=== PATIENT | male | born 1965 | race Caucasian/White ===

== ENCOUNTER 2016-07-29 16:50 | Emergency (ER) | payer BC ==
[~2016-07-29] VITALS: Ht 182.9 cm; Wt 131.0 kg
[~2016-07-29 16:50] MED LIST: ESOM20CA PO
[2016-07-29 16:59] VITALS: TEMP 37; Ht 182.9 cm; Wt 131.0 kg
[2016-07-29] MEDS ORDERED: KETOROLAC TROMETHAMINE 30 MG/ML VIAL IV STA (17:17)
[2016-07-29 17:47] LABS: BASO % 0.1 %; BASO ABS # 0.01 K/uL (0-0.2); COMPLETE YES; EOS % 1.1 %; HEMATOCRIT 43.8 % (42-52); IG% 1.3 %; LYMPH % 20.1 %; LYMPH ABS # 1.79 K/uL (1.2-3.4); MEAN CELL VOLUME 88.3 fL (80-100); MEAN CORPUSCULAR HGB CONC 35.2 g/dl (32-36); MONO % 9.1 %; NEUT % 68.3 %; PLATELET COUNT 206 K/uL (130-400); RED BLOOD COUNT 4.96 M/uL (4.7-6.1); WHITE BLOOD COUNT 8.89 K/uL (4.8-10.8)
[2016-07-29] MEDS ORDERED: IBUP-1050 PO (17:52)
[2016-07-29] MEDS ORDERED: AMOX875T PO (17:52)
[2016-07-29 18:14] LABS: BUN/CREATININE RATIO 20.2 (10-20); CREATININE 1.1 mg/dl (0.60-1.40); POTASSIUM 3.8 mmol/L (3.5-5.1)
[2016-07-29] MEDS ORDERED: OPTIRAY 320 IV PRN (18:15)
--- NOTE | 2016-07-29 19:45 | DIAGNOSTIC IMAGING REPORT ---
CT soft tissue neck SOFT TISSUE NECK WITH CLINICAL HISTORY: Left mastoid pain radiating to head, anterior/posterior neck pain TECHNIQUE: Transaxial acquisition. Multi axial reformatted images COMPARISON STUDY: 07/10/2014 FINDINGS: Major salivary glands are unremarkable. No evidence for abscess collection or obstruction. Airways intact. The epiglottis is normal. The glottic and subglottic regions are unremarkable. There is no significant cervical adenopathy. There are moderate degenerative changes of the thoracic spine. IMPRESSION: No acute process. Electronically signed by: Al Peralta M.D. 07/29/2016 7:43 PM Dictated Date/Time: 07/29/2016 7:40 PM
--- NOTE | 2016-07-29 19:50 | DIAGNOSTIC IMAGING REPORT ---
CT mastoids MASTOIDS-ORB/SELLA/TEMP W/O CLINICAL HISTORY: Left mastoid pain radiating to head, anterior/posterior neck TECHNIQUE: Transaxial acquisition with multi axial reformatted images COMPARISON STUDY: None FINDINGS: Mastoid air cells are clear. No evidence for destructive process. Middle ear structures are intact. The ossicles are aligned appropriately. Tympanic membranes are intact. The sputum is intact bilaterally. Close are symmetric. Retroseptal structures are intact. There is moderate degenerative change left and to lesser extent right temporomandibular joint. IMPRESSION: 1. Negative study of the mastoid and middle ear regions.. 2. Mastoid air cells are patent with no evidence for significant soft tissue thickening or opacification. 3. Moderate degenerative changes left and to lesser extent right temporomandibular joint Electronically signed by: Al Peralta M.D. 07/29/2016 7:48 PM Dictated Date/Time: 07/29/2016 7:46 PM
[2016-07-29 20:09] VITALS: BP 150/90; PULSE 69; O2SAT 94
[2016-07-29] MEDS ORDERED: OXYCODONE IR HOME PACK PO STA (20:28)
[2016-07-29] MEDS ORDERED: FLEXERIL HOME PACK 10 MG VIAL PO STA (20:28)
[2016-07-29] MEDS ORDERED: CYCL10TA6 PO (20:30)
[2016-07-29] MEDS ORDERED: OXYC1TAB3 PO (20:30)
--- NOTE | 2016-07-29 20:33 | EMERGENCY ROOM VISIT NOTE ---
History First contact with patient: 17:06 Chief Complaint: NECK PAIN Stated Complaint: NECK PAIN/MASTOPID PAIN BEHIND LT EAR, BACK/SPINE History of Present Illness The patient is a 51 year old male who presents to the Emergency Room with complaints of "neck pain/mastoid pain behind left ear, back/spine". The patient presents with pain in the left posterior cervical chain extending to the left mastoid and left ear. He was recently seen and placed upon amoxicillin , which was July 12 for potential sinus infection but he has had worsening pain. The pain is worsening return to his head to the right and is concerned that he may have mastoiditis as the pain he is experiencing currently is the same pain he had when he had mastoiditis. He denies any fevers, chills, chest pain, shortness of breath. He rates the overall pain as a 5/10. The cough is nonproductive. Review of Systems A complete 6-point Review of Systems was discussed with the patient, with pertinent positives and negatives listed in the History of Present Illness. All remaining Review of Systems questions can be considered negative unless otherwise specified. Past Medical/Surgical History Mastoiditis Family History FH: cholecystectomy Social History Smoking Status: Never Smoker Marital Status: Housing Status: lives with family Occupation Status: employed Current/Historical Medications Scheduled Amoxicillin & Pot Clavulanate (Augmentin 875-125 mg), 1 TAB PO BID Scheduled PRN Ibuprofen (Advil), 200-600 MG PO Q4H PRN for Pain Oxycodone Ir (Roxicodone Ir), 1-2 TAB PO Q4H PRN for Pain Allergies Coded Allergies: No Known Allergies (Unverified , UNKNOWN, 07/29/16) Physical Exam Vital Signs Date Time Temp Pulse Resp B/P Pulse Ox O2 Delivery O2 Flow Rate FiO2 07/29/16 20:09 69 18 150/90 94 Room Air 07/29/16 16:59 37.0 87 18 147/84 96 Physical Exam VITAL SIGNS - Vital signs and nursing notes were reviewed. Patient is afebrile , slightly hypertensive at 89 year E for, non-tachycardic and is saturating well on room air. GENERAL -51-year-old male appearing his stated age who is in no acute distress. Communicates well with provider and answers questions appropriately. SKIN - Without rashes. No petechial rashes. No evidence of cellulitis. HEAD - NC/AT. No evidence of fracture. EYES - PERRL with EOMI bilaterally. Sclera anicteric. Palpebral conjunctiva pink and moist with no injection noted. EARS - No deformities of external structures noted on gross examination bilaterally. No pain elicited with palpation of the tragus bilaterally. External auditory canals without discharge or otorrhea. Tympanic membranes pearly jean with retraction on the left. Right is within normal limits.. No fluid or purulent material visualized behind the TM. Handle of malleus, umbo, cone of light, pars tensa/flaccid all easily visualized. NOSE - Midline and without cyanosis. No epistaxis or purulent drainage noted. Septum midline without deviation or septal hematoma noted. MOUTH/OROPHARYNX - Without perioral cyanosis. Buccal mucosa pink and moist and without leukoplakia. Tongue midline with equal elevation of palate bilaterally. No tonsillar hypertrophy, erythema, or exudates noted. Good dentition noted. NECK - Neck with FROM. Supple to palpation. No lymphadenopathy noted. No nuchal rigidity. There is tenderness to palpation overlying the left mastoid and left paraspinous musculature of the cervical spine. There is no C-spine tenderness. LUNGS - Chest wall symmetric without accessory muscle use, intercostals retractions, or central cyanosis. Normal vesicular breath sounds CTA B/L. No wheezes, rales, or rhonchi appreciated. CARDIAC - RRR with S1/S2. No murmur, rubs, or gallops appreciated. Medical Decision & Procedures ER Provider Diagnostic Interpretation: CT mastoids MASTOIDS-ORB/SELLA/TEMP W/O CLINICAL HISTORY: Left mastoid pain radiating to head, anterior/posterior neck TECHNIQUE: Transaxial acquisition with multi axial reformatted images COMPARISON STUDY: None FINDINGS: Mastoid air cells are clear. No evidence for destructive process. Middle ear structures are intact. The ossicles are aligned appropriately. Tympanic membranes are intact. The sputum is intact bilaterally. Close are symmetric. Retroseptal structures are intact. There is moderate degenerative change left and to lesser extent right temporomandibular joint. IMPRESSION: 1. Negative study of the mastoid and middle ear regions.. 2. Mastoid air cells are patent with no evidence for significant soft tissue thickening or opacification. 3. Moderate degenerative changes left and to lesser extent right temporomandibular joint Electronically signed by: Al Peralta M.D. 07/29/2016 7:48 PM Dictated Date/Time: 07/29/2016 7:[address] soft tissue neck SOFT TISSUE NECK WITH CLINICAL HISTORY: Left mastoid pain radiating to head, anterior/posterior neck pain TECHNIQUE: Transaxial acquisition. Multi axial reformatted images COMPARISON STUDY: 07/10/2014 FINDINGS: Major salivary glands are unremarkable. No evidence for abscess collection or obstruction. Airways intact. The epiglottis is normal. The glottic and subglottic regions are unremarkable. There is no significant cervical adenopathy. There are moderate degenerative changes of the thoracic spine. IMPRESSION: No acute process. Electronically signed by: Al Peralta M.D. 07/29/2016 7:43 PM Dictated Date/Time: 07/29/2016 7:40 PM Laboratory Results 07/29/16 17:30 Red Blood Count 4.96, Mean Corpuscular Volume 88.3, Mean Corpuscular Hemoglobin 31.0, Mean Corpuscular Hemoglobin Concent 35.2, Mean Platelet Volume 11.0, Neutrophils (%) (Auto) 68.3, Lymphocytes (%) (Auto) 20.1, Monocytes (%) (Auto) 9.1, Eosinophils (%) (Auto) 1.1, Basophils (%) (Auto) 0.1, Neutrophils # (Auto) 6.06, Lymphocytes # (Auto) 1.79, Monocytes # (Auto) 0.81, Eosinophils # (Auto) 0.10, Basophils # (Auto) 0.01 07/29/16 17:30 Test 07/29/16 17:30 White Blood Count 8.89 K/uL (4.8-10.8) Red Blood Count 4.96 M/uL (4.7-6.1) Hemoglobin 15.4 g/dL (14.0-18.0) Hematocrit 43.8 % (42-52) Mean Corpuscular Volume 88.3 fL (80-100) Mean Corpuscular Hemoglobin 31.0 pg (25-34) Mean Corpuscular Hemoglobin Concent 35.2 g/dl (32-36) Platelet Count 206 K/uL (130-400) Mean Platelet Volume 11.0 fL (7.4-10.4) Neutrophils (%) (Auto) 68.3 % Lymphocytes (%) (Auto) 20.1 % Monocytes (%) (Auto) 9.1 % Eosinophils (%) (Auto) 1.1 % Basophils (%) (Auto) 0.1 % Neutrophils # (Auto) 6.06 K/uL (1.4-6.5) Lymphocytes # (Auto) 1.79 K/uL (1.2-3.4) Monocytes # (Auto) 0.81 K/uL (0.11-0.59) Eosinophils # (Auto) 0.10 K/uL (0-0.5) Basophils # (Auto) 0.01 K/uL (0-0.2) RDW Standard Deviation 39.8 fL (36.4-46.3) RDW Coefficient of Variation 12.5 % (11.5-14.5) Immature Granulocyte % (Auto) 1.3 % Immature Granulocyte # (Auto) 0.12 K/uL (0.00-0.02) Anion Gap 9.0 mmol/L (3-11) Est Creatinine Clear Calc Drug Dose 110.0 ml/min Estimated GFR () 89.0 Estimated GFR (Non- 76.8 BUN/Creatinine Ratio 20.2 (10-20) Calcium Level 9.0 mg/dl (8.5-10.1) Medications Administered Medications (Trade) Dose Ordered Sig/Jacquelyn Route Start Time Stop Time Status Last Admin Dose Admin Ketorolac Tromethamine (Toradol Inj) 30 mg NOW STAT IV 07/29/16 17:17 07/29/16 17:21 DC 07/29/16 17:37 30 MG Cyclobenzaprine HCl (FLEXERIL 10MG Home Pack) 1 homepack UD STAT PO 07/29/16 20:28 07/29/16 20:29 DC 07/29/16 20:46 1 HOMEPACK Oxycodone HCl (Roxicodone Immediate Rel 5MG Home Pack) 1 homepack UD STAT PO 07/29/16 20:28 07/29/16 20:29 DC 07/29/16 20:46 1 HOMEPACK Medical Decision Patient was seen and evaluated as above. After obtaining a thorough history and physical examination there was concern for mastoiditis, and the patient's tenderness upon examination as well as past medical history. IV access is initiated, and the above workup was performed. CBC reveals no leukocytosis or concerning anemia. PRP reveals no evidence of renal failure. CT scan was obtained with results as above. No concerning acute finding. Patient was given Toradol for his pain. Upon reexamination was evident that the patient's pain was stemming from what is likely a strain of the left superior paravertebral, cervical musculature. This is worse with movement. There is no evidence of heart involvement. I do not suspect any cardiac or pulmonary causes. The pain is reproducible with palpation, and worse with movement. He is to follow up regarding today's visit and was given pain medication to help through this time. He was educated upon worrisome symptoms which to return, had questions prior to discharge, and was discharged home in good condition. Knee evaluation and treatment of this patient following differential diagnoses were entertained: Cervical strain, mastoiditis, eustachian tube dysfunction, tonsillitis, meningitis, AK, PE, among others. Impression Primary Impression: Cervical muscle strain Additional Impression: Pain of left mastoid Departure Information Dispostion Home / Self-Care Condition GOOD Prescriptions Oxycodone Ir (Roxicodone Ir) 5 Mg Tab 1-2 TAB PO Q4H Y for Pain, #15 TAB For Initial Treatment Prov: Bo Jauregui PA-C 07/29/16 Referrals Dayron Jade M.D. (PCP) Enoch Varela M.D. Patient Instructions [facility] Additional Instructions You have been treated in the Emergency Department for left mastoid and neck pain. You have been prescribed Oxy IR to be used for pain control. This is a narcotic medication. You cannot drive or consume alcohol while on this medicine. This medicine should only be used for pain that cannot be controlled with over-the- counter pain medicines. You have been prescribed Flexeril (cyclobenzaprine) 1-2 tabs orally, three times per day. Do NOT exceed 30 mg (6 tabs) per day. Take your first dose at bedtime as it can make you drowsy. Always take all medications as prescribed. For pain control, you can use the following [id number] medicines (if >12 yo): - Regular strength (325mg/tab) Tylenol (acetaminophen) 2 tabs every 4-6 hours as needed. Do not exceed 12 tablets in a 24 hour period. Avoid taking more than 4 grams (4000 mg) of Tylenol per day. This includes any other sources of acetaminophen you may take on a regular basis. - Regular strength (200 mg/tab) Advil (ibuprofen) 1-2 tabs every 4-6 hours as needed. Do not exceed a dose of 3200 mg per day. If this is an acute injury, ice can be applied to the area of pain for the first 3 days to help decrease pain and inflammation. After the first 3 days, a heating pad can be used over the area for continued soothing relief. You should schedule a follow-up appointment in 2-3 days with your Primary Care Provider for further evaluation and treatment of your neck and left mastoid pain. If referral to an research professional is desired, you may contact the above specialist. Dr. Varela Return to the Emergency Department if your current symptoms worsen despite treatment course outlined above, or if you develop any of the following symptoms : intractable pain despite aforementioned treatment course, loss of control of your bowel or bladder, numbness or tingling in your groin, or development of a fever. Please return to the emergency department with any new/concerning symptoms. Problem Qualifiers
== END 2016-07-29 20:51 | disposition home or self-care (01) ==
LOC: C.EDB 16:52 → C.EDD 20:51
DX: S16.1XXA Strain of muscle, fascia and tendon at neck level, initial encounter (principal); X58.XXXA Exposure to other specified factors, initial encounter

== ENCOUNTER → 2016-08-24 | Outpatient (CLI) | payer BC ==
[~2016-08-24] MED LIST changes: +AMOX875T PO; -ESOM20CA PO; +IBUP-1050 PO; +OXYC1TAB3 PO
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
== END | disposition home or self-care (01) ==
LOC: C.OPENMRI 08:05
PROVIDERS: ATTEND Orthopaedic Surgery Orthopaedic Surgery of the Spine
DX: M51.36 Other intervertebral disc degeneration, lumbar region (principal)

== ENCOUNTER → 2016-10-19 | Outpatient (CLI) | payer BC, OTHER ==
--- NOTE | 2016-10-19 15:56 | DIAGNOSTIC IMAGING REPORT ---
MRI OF THE CERVICAL SPINE WITHOUT IV CONTRAST CLINICAL HISTORY: Cervicalgia. Upper extremity numbness. COMPARISON STUDY: CT scan of the cervical spine dated 05/16/2009. TECHNIQUE: MRI of the cervical spine is performed using various T1 and T2-weighted sequences in the axial and sagittal planes. IV contrast was not administered for this examination. The examination is degraded by motion artifact. FINDINGS: Cervical spine: Vertebral body height and alignment are maintained throughout the cervical spine. There is straightening of the cervical lordosis. The atlantodental articulation appears maintained. The spinous processes are intact as visualized. No destructive bony lesion is seen. Small anterior osteophytes are noted in the lower cervical region. Intervertebral discs: Mild degenerative disc desiccation is noted throughout the cervical spine. No significant loss of height is seen. Spinal cord: The cervical spinal cord is normal in morphology and signal intensity. C2-C3: Unremarkable. C3-C4: A posterior disc osteophyte complex minimally effaces the ventral subarachnoid space. Predominantly facet arthropathy causes minimal bilateral neural foraminal stenosis. C4-C5: A posterior disc osteophyte complex eccentric to the left effaces the ventral subarachnoid space. Uncovertebral and facet arthropathy cause minimal left neural foraminal stenosis. C5-C6: A posterior disc osteophyte complex abuts the ventral cord. Uncovertebral and facet arthropathy cause mild left greater than right neural foraminal stenosis. C6-C7: A posterior disc osteophyte complex abuts the ventral cord. The neural foramina appear clear. C7-T1: Unremarkable. Soft tissues: The prevertebral and paraspinous soft tissues are within normal limits. Brain parenchyma: Partially imaged brain parenchyma at the skull base is normal in appearance. IMPRESSION: 1. Mild multilevel cervical spondylosis as detailed above. This is greatest from C4-C5 through C6-C7. See discussion for detailed level by level analysis. 2. No destructive bony lesion is identified. 3. The cervical spinal cord is normal in morphology and signal intensity. Dictated: 10/19/2016 3:38 PM Transcribed: 10/19/2016 3:56 PM [facility] Electronically signed by: Hardeep Garcia M.D. 10/19/2016 3:59 PM Dictated Date/Time: 10/19/2016 3:38 PM
== END | disposition home or self-care (01) ==
LOC: C.OPENMRI 14:43
PROVIDERS: ATTEND Orthopaedic Surgery Orthopaedic Surgery of the Spine
DX: M47.892 Other spondylosis, cervical region (principal)

== ENCOUNTER 2022-02-03 03:05 | Inpatient (IN) ==
[2022-02-03] MEDS ORDERED: ONDANSETRON INJ 2 MG/ML 2 ML VIAL IV STA (03:21)
[2022-02-03] MEDS ORDERED: fentaNYL citrate 100 MCG/2 ML VIAL IV STA (03:21)
--- NOTE | 2022-02-03 03:27 | Emergency Department Note ---
Impression & Plan Stroke-like symptom, Chest pain ED Provider Note Name: EVERETTE BAUTISTA III Age: 56 Sex: M Arrives Via: Ambulance Informant: Patient, ED Provider: Balaji Esquivel MD Chief Complaint: Chest pain Impression: As per impressions above Medical Decision Making: Very pleasant 56-year-old gentleman with history of GERD and previous cholecystectomy arrives for evaluation of left chest pain. Intermittent over the last day or so. When discussing at length with the patient there clearly is an element of left-sided paresthesias to both the left face the left arm and the left legs and then he admits that a few days ago he felt like he could not walk in a straight line. EKG is without acute ischemia and initial troponin is negative. A CT of the head was obtained given the strokelike symptoms he is describing. The CT head is negative. Patient has an NIH of 0 and given on and off symptoms for the last day I do not feel that he would be a TNKase patient in the setting of normal NIH. Patient is agreeable to hospitalization for both a cardiac rule out and further evaluation of this strokelike symptoms. He has no evidence of dissection nor is he in particular short of breath. 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 Patient received aspirin 324 mg by EMS. Patient had received some nitro by EMS and got a severe headache thus was given some fentanyl on arrival with no further headache and no further chest pain issues. Triage/Nursing Notes reviewed by Me Differentials:Cardiac ischemia, aortic dissection, pulmonary embolism, pneumothorax, pneumonia, pericarditis, myocarditis, esophageal rupture, GERD, cholecystitis, pancreatitis, musculoskeletal, as well as other pathologies. Vital Signs: reviewed and remarkable for no significant abnormalities Interventions: Fentanyl 75mcg IV Labs:Reviewed and remarkable for no significant abnormalities Imaging: X ray results are stated below per my interpretation: Chest: 1 view: No infiltrate, no effusion, normal cardiac border. [facility] Radiologist interpretation reviewed by me: CT head no acute findings EKG:As per my interpretation. Indication chest pain. Normal sinus rhythm at 77 bpm noted QTC of 443. There is an incomplete right bundle branch block. There is no ectopy nor ischemia. When compared to EKG of September 07, 2014 there is no acute change. Consults:Hospitalist Plan: Disposition:Hospitalization. Condition: Good History of Present Illness:56-year-old male arrives for evaluation of chest pain. Patient notes earlier today starting to get some substernal chest pain. Radiated to his left jaw and left arm. It exacerbated as the evening went on but also waxing and waning at times. He also notes that he started to get some paresthesias in the left arm. Couple days ago he notes that he may have had some symptoms and felt like he could not walk straight. This resolved. He denies any slurred speech, facial droop, weakness in arms or legs focally. He has no history of anything like this before. He is not a smoker. 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 He has no leg swelling or calf pain. He denies any tearing chest pain or tearing back pain. He has had no recent abdominal pain. He did have some cramping in his left thigh a few days ago which has resolved. He has had no rec ent falls, trauma, injuries. This evening pain was getting significantly worse to call 911. He was given aspirin 324 mg p.o. as well as nitroglycerin spray. He notes the chest pain is have but he is still having some of it. He did get a severe headache with the nitroglycerin and request no further that. Denies any history of CAD no recent cardiac work-up. No family history of CAD. No family history of dissection or DVT/PE. ROS: See above HPI for pertinent positives & negatives. A total of 10 systems reviewed and were otherwise negative. 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 EYES: No scleral icterus, unremarkable pupils. ENT: Mucous membranes moist, no nasal congestion. NECK: No masses appreciated, nomeningismus, trachea is midline. RESPIRATORY: No dyspnea. Clear to auscultation and equal bilaterally. No wheeze, no rhonchi. CARDIOVASCULAR: Regular rate and rhythm.No murmurs, rubs, gallops appreciated. GASTROINTESTINAL: Abdomen soft, non-tender, no peritonitis.Bowel sounds positive.No masses appreciated. BACK: No midline tenderness, no CVA tenderness EXTREMITIES: Normal motion all extremities, no cyanosis, no edema. NEUROLOGIC: Alert and oriented, no acute motor or sensory deficits, no focal weakness, cranial nerves grossly intact. SKIN: No rash, no jaundice, no diaphoresis. PSYCH: Appropriate GCS: 15 ED Course: Times/Reassessments: Multiple reassessments patient stable with good vitals and feeling much better. Agreeable to hospitalization. Balaji Esquivel MD Past Med/Surg History Social History Tobacco Type: Smokeless Tobacco (Dip or Chew) Do You Dip or Chew Tobacco: Yes; Tobacco Cessation Education Requested by Patient: No Hx Substance Use: No Preferred Language: Pashto Communication Ability: Effective Distribution Center Manager Required: No Current Living Situation: Spouse Other Information That Helps Us Care for You: No Feels Safe at Home: Yes Assistive Devices: None Allergies Allergies Allergy/AdvReac Type Severity Reaction Status Date / Time No Known Allergies AdvReac Unknown UNKNOWN Unverified 07/29/16 17:51 Home Meds Home Medications Medication Instructions Recorded Confirmed Amoxicillin & Pot Clavulanate 1 tab PO BID #14 tabs 07/29/16 (Augmentin 875-125 mg) Ibuprofen (Advil) 200 - 600 mg PO Q4H PRN Pain #0 07/29/16 tabs Results & Data (ED) Vital Signs Vital Signs - 24 hr 02/03/22 03:10 02/03/22 03:21 02/03/22 03:21 Temperature 36.8 C Temperature Source Oral Pulse Rate 89 Pulse Rate [Finger] 89 Respiratory Rate 20 20 Respiratory Effort / Characteristics Non-Labored Spontaneous Non-Labored Spontaneous Respiratory Depth Normal Normal Blood Pressure 111/76 Blood Pressure [Right Arm] 111/76 Blood Pressure Mean 87 Blood Pressure Mean [Right Arm] 87 Blood Pressure Position Sitting Blood Pressure Position [Right Arm] Sitting Pulse Oximetry 96 96 96 Oxygen Delivery Method Room Air Room Air Room Air Sepsis Recent Fever Within 48 Hours No Sepsis New/Unexplained Change in Mental Status No Sepsis Action Taken by Nursing No Action Required Laboratory Data Result diagrams: 02/04/22 06:45 02/04/22 06:45 Lab Results 02/03/22 02/03/22 02/03/22 Range/Units 03:15 03:15 03:15 WBC 8.75 (4.8-10.8) K/ul RBC 4.92 (4.63-6.08) M/uL Hgb 15.4 (14.0-18.0) g/dl Hct 44.9 (40.1-51.0) % MCV 91.3 (80.0-100.0) fL MCH 31.3 (25.0-34.0) pg MCHC 34.3 (32.0-36.0) g/dL RDW Std Deviation 40.4 (36.4-46.3) fL RDW Coeff of Faye 12.0 (11.5-14.5) % Plt Count 207 (130-400) K/uL MPV 11.5 (9.4-12.4) fL Immature Gran % (Auto) 2.1 % Neut % (Auto) 68.9 % Lymph % (Auto) 19.3 % [place]ham % (Auto) 8.1 % Eos % (Auto) 0.9 % Baso % (Auto) 0.7 % Neut # (Auto) 6.03 (1.4-6.5) K/uL Lymph # (Auto) 1.69 (1.2-3.4) K/uL [place]ham # (Auto) 0.71 (0.24-0.82) K/uL Eos # (Auto) 0.08 (0-0.50) K/uL Baso # (Auto) 0.06 (0-0.2) K/uL Immature Gran # (Auto) 0.18 H (0.00-0.02) K/uL PT 10.7 (9.0-12.0) Seconds INR 1.0 (0.9-1.1) APTT 29.6 (21.0-31.0) Seconds PTT Ratio 1.1 D-Dimer 190 (0-500) ug/L FEU Sodium 136 (136-145) mmol/L Potassium 4.0 (3.5-5.1) mmol/L Chloride 103 (98-107) mmol/L Carbon Dioxide 24 (21-32) mmol/L Anion Gap 9 (3-11) BUN 18 (6-23) mg/dl Creatinine 0.99 (0.6-1.4) mg/dl Est Cr Clr Drug Dosing 117.9 ml/min Est GFR ( Amer) 97.6 ml/min Est GFR (Non-Af Amer) 84.2 ml/min BUN/Creatinine Ratio 18.2 (10-20) Glucose 128 H (70-99(Fasting)) mg/dl Calcium 8.7 (8.5-10.1) mg/dl Magnesium 2.1 (1.7-2.4) mg/dl Total Bilirubin 0.7 (0.2-1.0) mg/dl Direct Bilirubin 0.1 (0-0.2) mg/dl AST 20 (13-39) U/L ALT 26 (7-52) U/L Alkaline Phosphatase 82 (34-104) U/L Troponin I High Sens 3.5 (0-20) pg/ml Total Protein 6.6 (6.0-8.3) gm/dl Albumin 4.2 (3.4-5.0) gm/dl Lipase 48 (11-82) U/L SARS-CoV-2, RNA, NAAT (NEGATIVE) 02/03/22 Range/Units 04:03 WBC (4.8-10.8) K/ul RBC (4.63-6.08) M/uL Hgb (14.0-18.0) g/dl Hct (40.1-51.0) % MCV (80.0-100.0) fL MCH (25.0-34.0) pg MCHC (32.0-36.0) g/dL RDW Std Deviation (36.4-46.3) fL RDW Coeff of Faye (11.5-14.5) % Plt Count (130-400) K/uL MPV (9.4-12.4) fL Immature Gran % (Auto) % Neut % (Auto) % Lymph % (Auto) % Windham % (Auto) % Eos % (Auto) % Baso % (Auto) % Neut # (Auto) (1.4-6.5) K/uL Lymph # (Auto) (1.2-3.4) K/uL Windham # (Auto) (0.24-0.82) K/uL Eos # (Auto) (0-0.50) K/uL Baso # (Auto) (0-0.2) K/uL Immature Gran # (Auto) (0.00-0.02) K/uL PT (9.0-12.0) Seconds INR (0.9-1.1) APTT (21.0-31.0) Seconds PTT Ratio D-Dimer (0-500) ug/L FEU Sodium (136-145) mmol/L Potassium (3.5-5.1) mmol/L Chloride (98-107) mmol/L Carbon Dioxide (21-32) mmol/L Anion Gap (3-11) BUN (6-23) mg/dl Creatinine (0.6-1.4) mg/dl Est Cr Clr Drug Dosing ml/min Est GFR ( Amer) ml/min Est GFR (Non-Af Amer) ml/min BUN/Creatinine Ratio (10-20) Glucose (70-99(Fasting)) mg/dl Calcium (8.5-10.1) mg/dl Magnesium (1.7-2.4) mg/dl Total Bilirubin (0.2-1.0) mg/dl Direct Bilirubin (0-0.2) mg/dl AST (13-39) U/L ALT (7-52) U/L Alkaline Phosphatase (34-104) U/L Troponin I High Sens (0-20) pg/ml Total Protein (6.0-8.3) gm/dl Albumin (3.4-5.0) gm/dl Lipase (11-82) U/L SARS-CoV-2, RNA, NAAT NEGATIVE (NEGATIVE) Administered Medications Acetaminophen (Acetaminophen 325 Mg Tab) 650 mg PO Q4H PRN PRN Reason: Pain or Fever Stop: 03/05/22 09:14 Last Admin: 02/04/22 10:08 Dose: 650 mg Documented By: Admin: 02/03/22 12:55 Dose: 650 mg Documented By: Aspirin (Aspirin 81 Mg Ectab) 81 mg PO [facility] Stop: 03/05/22 09:14 Last Admin: 02/04/22 10:06 Dose: 81 mg Documented By: Admin: 02/03/22 10:58 Dose: 81 mg Documented By: Lorazepam (Lorazepam 0.5 Mg Tab) 0.5 mg PO TODAY@1000 [facility] Stop: 02/04/22 22:00 Last Admin: 02/04/22 11:05 Dose: 0.5 mg Documented By: MS Pantoprazole Sodium (Pantoprazole 40 Mg Tab) 40 mg PO QAM [facility] Stop: 03/05/22 15:14 Last Admin: 02/04/22 10:06 Dose: 40 mg Documented By: Admin: 02/03/22 17:17 Dose: 40 mg Documented By: MS Discontinued Medications Alprazolam (Alprazolam 0.25 Mg Tablet) 0.25 mg PO ONCE ONE Stop: 02/03/22 11:38 Last Admin: 02/03/22 17:20 Dose: Not Given Documented By: MS Alprazolam (Alprazolam 0.25 Mg Tablet) 0.25 mg PO NOW STA Stop: 02/03/22 17:15 Last Admin: 02/03/22 17:18 Dose: 0.25 mg Documented By: Fentanyl Citrate (Fentanyl Citrate 100 Mcg/2 Ml Vial) 75 mcg IV NOW STA Stop: 02/03/22 03:22 Last Admin: 02/03/22 03:56 Dose: 75 mcg Documented By: EMIR Gadobutrol (Gadobutrol 65ml Vial) 13 ml IV ONCE ONE Stop: 02/03/22 18:53 Last Admin: 02/03/22 18:53 Dose: 13 ml Documented By: AFSHIN Sodium Chloride (Nss 1000ml) 1,000 mls @ 80 mls/hr IV .[id number] [facility] Stop: 02/03/22 21:44 Last Infusion: 02/03/22 15:29 Dose: 0 mls/hr Documented By: Admin: 02/03/22 10:58 Dose: 80 mls/hr Documented By: Ioversol (Optiray 300 500ml) 106 ml IV ONCE ONE Stop: 02/03/22 06:36 Last Admin: 02/03/22 06:35 Dose: 106 ml Documented By: MARY Ondansetron HCl (Ondansetron Inj 2 Mg/Ml 2 Ml Vial) 4 mg IV NOW STA Stop: 02/03/22 03:22 Last Admin: 02/03/22 03:53 Dose: 4 mg Documented By: CC Discharge Plan Visit Data Chief Complaint: Chest Pain ED Provider: Balaji Esquivel Discharge Problem: Stroke-like symptom, Chest pain Patient Disposition: Admitted As Inpatient Discharge Instructions Interventions: ED Discharge Assessment Last Done: 02/03/22 10:00 : Chest pain Qualifiers: Chest pain type: precordial pain Qualified Code(s): R07.2 - Precordial pain
[2022-02-03 03:45] LABS: Basophils # (auto) 0.06 K/uL (0-0.2); Basophils % (auto) 0.7 %; Eosinophils # (auto) 0.08 K/uL (0-0.50); Eosinophils % (auto) 0.9 %; Hematocrit (blood only) 44.9 % (40.1-51.0); Hemoglobin 15.4 g/dl (14.0-18.0); Immature Granulocytes # (auto) 0.18 K/uL (0.00-0.02); Immature Granulocytes % (auto) 2.1 %; Lymphocytes # (auto) 1.69 K/uL (1.2-3.4); Lymphocytes % (auto) 19.3 %; Mean Corpuscular Hemoglobin 31.3 pg (25.0-34.0); Mean Corpuscular Hgb Conc 34.3 g/dL (32.0-36.0); Mean Corpuscular Volume 91.3 fL (80.0-100.0); Mean Platelet Volume 11.5 fL (9.4-12.4); Monocytes # (auto) 0.71 K/uL (0.24-0.82); Monocytes % (auto) 8.1 %; Neutrophils # (auto) 6.03 K/uL (1.4-6.5); Neutrophils % (auto) 68.9 %; Platelet Count 207 K/uL (130-400); RDW Standard Deviation 40.4 fL (36.4-46.3); Red Blood Count 4.92 M/uL (4.63-6.08); White Blood Count 8.75 K/ul (4.8-10.8)
[2022-02-03 04:01] LABS: D Dimer 190 ug/L FEU (0-500); Partial Thromboplastin Ratio 1.1; Partial Thromboplastin Time 29.6 Seconds (21.0-31.0); Prothrombin Time 10.7 Seconds (9.0-12.0)
[2022-02-03 04:53] LABS: Albumin Level 4.2 gm/dl (3.4-5.0); BUN Creatinine Ratio 18.2 (10-20); Bilirubin Direct 0.1 mg/dl (0-0.2); Bilirubin,Total 0.7 mg/dl (0.2-1.0); Calcium 8.7 mg/dl (8.5-10.1); Creatinine Clr Calc Pharmacy 117.9 ml/min; Est GFR (African American) 97.6 ml/min; Est GFR (Non-African American) 84.2 ml/min; Magnesium 2.1 mg/dl (1.7-2.4); Total Protein 6.6 gm/dl (6.0-8.3); Troponin I High Sensitivity 3.5 pg/ml (0-20)
[2022-02-03] MEDS ORDERED: OPTIRAY 300 500mL IV ONE (06:35)
[2022-02-03 06:48] LABS: Appearance Urine Clear (Clear); Bilirubin Urine Negative (Negative); Blood Urine Negative (Negative); Color Urine Yellow; Glucose Urine UA Negative (Negative); Ketones Urine Negative (Negative); Leukocyte Esterase Urine Negative (Negative); Nitrite Urine Negative (Negative); Protein Urine Negative (Negative); Urobilinogen Urine Negative (Negative); pH Urine 5.5 (4.5-7.5)
--- NOTE | 2022-02-03 07:18 | History and Physical Report ---
DATE OF ADMISSION: 02/03/2022. CHIEF COMPLAINT: Chest pain and numbness in the left upper extremity. HISTORY OF PRESENT ILLNESS: A 56-year-old male with no significant past medical history, does not go to the doctor often, not on any medications, presents with chest pain. The patient says last night at 11 p.m., before going to work, he had some chest discomfort and also numbness and pain in his left underarm and feels numbness in the last two fingers and also headache and neck pain and also some discomfort in his left thigh region and also some numbness in the left foot. After coming from work, it was not getting better, so he was brought to the hospital. He was given aspirin and nitroglycerin sublingually, currently resting comfortably, talking fine. No facial droop seen, no slurred speech. The patient states couple of days ago, he had problem where he felt like he was not walking straight and today also, before going to work, he felt like falling forward. 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 No smoking, but chews tobacco daily. Alcohol occasionally. No drug use. Currently, headache is okay. No blurred visions, no earache, no runny nose, no sore throat, no cough, no difficulty swallowing. Appetite is okay. During the episode, he felt slightly short of breath and slightly nauseous. He also has chronic abdominal pain. No diarrhea or constipation. Normal bladder movements. Currently, resting comfortably and hemodynamically stable. ALLERGIES: No known drug allergies. PAST MEDICAL HISTORY: As mentioned above. PAST SURGICAL HISTORY: Had a laparoscopic cholecystectomy, umbilical hernia repair. MEDICATIONS: None. FAMILY HISTORY: No family history on file. SOCIAL HISTORY: Chews tobacco. Alcohol, rarely. No drug use. REVIEW OF SYSTEMS: As per HPI. Rest of the review of systems is negative. PHYSICAL EXAMINATION: GENERAL: The patient is morbidly obese, not in acute distress. VITAL SIGNS: Temperature 36.8, pulse 68, respiratory rate 16, blood pressure 150/72, oxygen 94% on room air. HEENT: Pupils equal, round and reactive to light. Oral mucosa moist. NECK: No JVD or neck masses. CARDIOVASCULAR: S1 and S2 heard. Regular rate and rhythm. No murmur, no gallop. RESPIRATORY SYSTEM: Normal AP diameter. No accessory muscle use. No wheezing, no crackles. ABDOMEN: Soft, bowel sounds are present. Mild abdominal discomfort, no guarding, no rigidity, no distention. CENTRAL NERVOUS SYSTEM: Alert, awake, and oriented x3. Speech is clear. No facial droop seen. Insight is good. Obeys commands. Power 5/5 in all extremities. Coordination of movements normal. No pronator drift. Sensation is intact. Position sense intact. EXTREMITIES: No edema, no erythema. LABORATORY DATA: WBC 8.7, hemoglobin 15.4, hematocrit 44.9, platelets 207. PT 10.7, INR 1, APTT 29.6. D-dimer 190. Sodium 136, potassium 4, chloride 103, bicarbonate 24, BUN 18, creatinine 0.9, serum glucose 128, calcium 8.7, magnesium 2.1, total bilirubin 0.7, direct bilirubin 0.1, AST 20, ALT 26, alkaline phosphatase 82. Troponin I high sensitivity 3.5. SARS-CoV-2 rapid test negative. Lipase 48. IMAGING DATA: CT of the head, preliminary report, no acute findings. Chest x- ray, no acute findings. EKG: Normal sinus rhythm at a rate of 77, incomplete right bundle-branch block, no acute ST changes seen. ASSESSMENT AND PLAN: This is a 56-year-old male who presents with chest pain and also stroke-like symptoms. 1. Chest pain, going on since last night 11 p.m., radiating to his neck and also left arm. EKG and troponins are negative. The patient has risk factors of morbid obesity, chews tobacco, does not go to doctors. We will do serial enzymes, echo. We will keep him n.p.o. Consult Cardiology for further recommendation. Closely monitor in the tele floor. 2. Stroke-like symptoms. The patient also has some numbness in the left upper arm and _ fingers and also numbness in the left feet and had some imbalance couple of days ago. CT of head preliminary report okay. Exam is okay. We will do a full stroke workup with CTA of the head and neck, MRI scan of the brain and echocardiogram. Neuro consult, PT/OT and speech evaluation and closely monitor in the tele floor. Follow HbA1c level and lipid profile per protocol. 3. Morbid obesity: Needs counseling. 4. Chews tobacco. Needs counseling. 5. Deep venous thrombosis prophylaxis: Sequential compression devices for now. DISPOSITION: Closely monitor in tele floor. Level 1 full code. Expect to discharge home and follow with family doctor regularly. Job ID: [id number] [facility]
--- NOTE | 2022-02-03 07:19 | CT Scan Report ---
HEAD CT NONCONTRAST CT DOSE: 691.05 mGy.cm HISTORY: stroke like symptoms TECHNIQUE: Multiaxial CT images of the head were performed without the use of intravenous contrast. A utomated exposure control was utilized for this study. A dose lowering technique was utilized adheri ng to the principles of ALARA. Comparison: Head CT 07/10/2014. Findings: The paranasal sinuses and mastoid air cells are clear. The calvarium and skull base are int act. The ventricles and sulci are within normal limits. There is no mass, hematoma, midline shift, or acute infarct. Stable small focus of encephalomalacia within the left high convexity likely due to a n old injury/old infarct. Impression: No significant change compared to the prior study. No acute intracranial abnormality. ACT 112: Negative or not required by law. Electronically signed by: Jean Carlos Morgan M.D. 02/03/2022 7:17 AM
--- NOTE | 2022-02-03 07:26 | CT Scan Report ---
CT ANGIOGRAM OF THE BRAIN CLINICAL HISTORY: Strokelike symptoms. COMPARISON STUDY: CT angiogram of the brain dated 07/10/2014. Unenhanced CT of the brain performed co ncurrently on 02/03/2022 TECHNIQUE: Following the IV administration of 160 cc of Optiray 300, CT angiogram of the brain was pe rformed from the skull base to the vertex. Images are reviewed in the axial, sagittal, and coronal pl anes. 3-D MIPS images are created and assessed. IV contrast was administered without complication. A dose lowering technique was utilized adhering to the principles of ALARA. CT DOSE: 1390.64 mGy.cm FINDINGS: Brain parenchyma: A small focus of encephalomalacia in the high left posterior parietal cortex is con sistent with a remote insult. There is no evidence of hemorrhage, mass effect, or acute territorial i schemia noting angiographic phase technique. There is no evidence of enhancing mass lesion on the ang iogram phase images. No extra-axial fluid collection is seen. Perea-white matter differentiation is pr eserved. Ventricles, sulci, and cisterns: Normal in configuration. CT angiogram of the brain: There is a left posterior communicating artery. The internal carotid arter ies are widely patent, as are the anterior and middle cerebral arteries. The vertebrobasilar system a nd posterior cerebral arteries are widely patent. The left vertebral artery is dominant. There is no aneurysm, high-grade stenosis, or focal vessel cutoff identified throughout the intracranial circulat ion. Dural sinuses: Clear as visualized. Orbits: The bony orbits are intact. The orbital contents are normal as visualized noting bilateral oc ular lens implants. Sinuses and mastoids: The paranasal sinuses are clear. The mastoid air cells are well pneumatized. Calvarium: Unremarkable. IMPRESSION: 1. There is no evidence of hemorrhage, mass effect, or acute territorial ischemia noting angiographic phase technique. 2. Unremarkable CT angiogram of the brain. ACT 112: Negative or not required by law. Electronically signed by: Hardeep Garcia M.D. 02/03/2022 7:25 AM
--- NOTE | 2022-02-03 07:40 | CT Scan Report ---
NECK CTA HISTORY: stroke like symptoms TECHNIQUE: Multiaxial CT images of the neck were performed following the intravenous administration o f contrast to evaluate the major cervical vessels. Maximum intensity projection images were also obta ined. All measurements were calculated based on NASCET criteria. A dose lowering technique was utili zed adhering to the principles of ALARA. COMPARISON STUDY: None. FINDINGS: The aortic arch and proximal great vessels are widely patent. There is no significant sten osis, occlusion, or dissection identified within the bilateral common carotid, internal carotid, or v ertebral arteries. 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 This measures 5.8 mm in diameter. IMPRESSION: 1. No significant stenosis, occlusion, or dissection identified within the carotid or vertebral arter ies. 2. 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 ACT 112: Negative or not required by law. Electronically signed by: Jean Carlos Morgan M.D. 02/03/2022 7:37 AM
--- NOTE | 2022-02-03 08:55 | Electrocardiogram Report ---
Test Reason : Blood Pressure : / mmHG Vent. Rate : 077 BPM Atrial Rate : 077 BPM P-R Int : 144 ms QRS Dur : 096 ms QT Int : 392 ms P-R-T Axes : 044 036 055 degrees QTc Int : 443 ms Normal sinus rhythm Incomplete right bundle branch block Borderline ECG When compared with ECG of 07-SEP-2014 07:33, No significant change was found Confirmed by Josh Cruz ([id number]) on 02/03/2022 8:54:52 AM Referred By: REFERRED SELF Confirmed By:Billy Cruz
[2022-02-03] MEDS ORDERED: POLYETHYLENE (MIRALAX) 17 GM PACK PO PRN (09:15)
[2022-02-03] MEDS ORDERED: PHARMACIST DISCHARGE MED REC CONSULT PRN (09:15)
[2022-02-03] MEDS ORDERED: ONDANSETRON INJ 2 MG/ML 2 ML VIAL IV PRN (09:15)
[2022-02-03] MEDS ORDERED: NITROGLYCERIN SL 0.4 MG/TAB TAB SL PRN (09:15)
[2022-02-03] MEDS ORDERED: SODIUM CHLORIDE 0.9% 1000ML 1,000 ML IV SCH (09:15)
--- NOTE | 2022-02-03 09:37 | Cardiology Consultation ---
Date of Consultation February 03, 2022 Assessment & Plan (1) Chest pain: (2) Stroke-like symptom: Plan 56 yo male without significant medical history (does not follow with a PCP) presents with chest pain and left upper extremity weakness starting at 11pm last night currently without symptoms EKG unremarkable Troponin negative x 1 given stroke like symptoms and need for further workup, will perform stress testing after CVA ruled out check resting echo now also recommend obtaining lipid panel and HgbA1c addendum: MRI unremarkable npo after midnight stress in AM History of Present Illness Attending Physician: Javi Parker MD Allergies Allergy/AdvReac Type Severity Reaction Status Date / Time No Known Allergies AdvReac Unknown UNKNOWN Unverified 07/29/16 17:51 Home Medications Medication Instructions Recorded Confirmed Type Amoxicillin & Pot Clavulanate 1 tab PO BID #14 tabs 07/29/16 History (Augmentin 875-125 mg) Ibuprofen (Advil) 200 - 600 mg PO Q4H PRN Pain #0 07/29/16 History tabs Patient History Social History Tobacco Type: Smokeless Tobacco (Dip or Chew) Do You Dip or Chew Tobacco: Yes; Tobacco Cessation Education Requested by Patient: No Hx Substance Use: No Preferred Language: German Communication Ability: Effective Pyrometer Operator Required: No Current Living Situation: Spouse Other Information That Helps Us Care for You: No Feels Safe at Home: Yes Assistive Devices: None Results & Data ([facility]) Vital Signs (Past 12 Hours) Vital Signs Temp Pulse Pulse Resp BP BP Pulse Ox 02/03/22 08:51 78 18 108/81 98 02/03/22 06:43 69 18 124/66 96 02/03/22 04:38 68 16 150/72 H 94 02/03/22 03:21 89 20 111/76 96 02/03/22 03:21 96 02/03/22 03:10 36.8 C 89 20 111/76 96 O2 Del Method 02/03/22 08:51 Room Air 02/03/22 06:43 Room Air 02/03/22 04:38 Room Air 02/03/22 03:21 Room Air 02/03/22 03:21 Room Air 02/03/22 03:10 Room Air
--- NOTE | 2022-02-03 09:44 | XRay Report ---
XR chest 1V portable HISTORY: Midsternal chest pain. COMPARISON: None. FINDINGS: There are low lung volumes. The lungs appear clear. The cardiac silhouette is borderline en larged. No pleural effusions. No pneumothorax. No evidence for pulmonary edema. No focal lung consoli dations to suggest pneumonia. IMPRESSION: Borderline cardiomegaly. Otherwise, no acute process within the chest. ACT 112: Negative or not required by law. Electronically signed by: Jean Carlos Morgan M.D. 02/03/2022 9:41 AM
[2022-02-03] MEDS: ASPIRIN 81 MG ECTAB PO SCH (10:58)
[2022-02-03] MEDS ORDERED: ALPRAZolam 0.25 MG TABLET PO ONE (11:37)
--- NOTE | 2022-02-03 12:36 | Neurology Consultation ---
Date of Consultation February 03, 2022 Assessment & Plan (1) Chest pain: (2) Stroke-like symptom: (3) Neck pain: Plan 56-year-old male presenting with chest pain radiating to the left upper extremity, associated numbness and tingling, primarily of fourth and fifth digits, radiating to the left forearm, no associated weakness or other associated neurologic symptoms such as dysarthria, diplopia, vertigo, hemiparesis, ataxia, etc. 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 A nonurgent neurosurgical evaluation should be considered. He does have a potential old infarct versus old injury at the high left cerebral convexity. This finding would be incidental in the context of his current presentation although I think further stroke evaluation is warranted. Agree with brain MRI as ordered. If brain MRI is negative for acute infarct or other process that may otherwise explain his left upper extremity symptoms, would recommend obtaining an MRI of the cervical spine. His reported symptoms could be consistent with a C8 radiculopathy, although an ulnar neuropathy is not completely excluded. Apart from a C8 radiculopathy potentially due to a focal disc protrusion, would also consider a mild cervical transverse myelitis. However, patient does not have myelopathic signs on examination. A mild brachial neuritis is also possible. Nonetheless, no history of antecedent infection, illness, or vaccination. Agree with adding aspirin 81 mg daily. Consider checking a fasting lipid panel, consider adding a statin if necessary. Consider checking a Lyme screen. Would also consider outpatient EMG of the left upper extremity depending on patient's clinical status going forward. History of Present Illness Reason for Consultation: stroke like sxs Requesting Physician: Dr. Carmona Attending Physician: Javi Parker MD History of Present Illness The patient is a 56-year-old male who presented to the emergency department overnight with a chief complaint of chest pain radiating into the left arm. He complained of some associated paresthesias and a feeling of heaviness to the left arm as well. His symptoms were of sudden onset. He did have some associated left-sided neck pain and headache as well. He has not been significantly hypertensive. He has been afebrile. Electrocardiogram revealed a normal sinus rhythm, incomplete right bundle branch block, 77 bpm. High- sensitivity troponin is pending. A CT of the head was negative for hemorrhage or acute process. There was a small focus of encephalomalacia within the left high convexity likely due to an old injury/old infarct. A CTA of the brain was negative for aneurysm, high-grade stenosis, or focal vessel cutoff/thrombosis. A CTA of the neck was negative for significant stenosis, occlusion, or dissection within the carotid or vertebral arteries. There was a mild focal. 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 Patient has been seen by cardiology, trending enzymes, plan to check echocardiogram. This morning, the patient continues to complain of a vague feeling of sensory disturbance/numbness involving the left upper limb, specifically the left fourth and fifth digits, extending up to the forearm. He complains of some mild associated neck pain as well as some discomfort between the shoulder blades. He denies other associated neurologic symptoms such as vision disturbance, change in speech or swallowing, significant weakness, or difficulty with standing or walking. Allergies Allergy/AdvReac Type Severity Reaction Status Date / Time No Known Allergies AdvReac Unknown UNKNOWN Unverified 07/29/16 17:51 Home Medications Medication Instructions Recorded Confirmed Type Amoxicillin & Pot Clavulanate 1 tab PO BID #14 tabs 07/29/16 History (Augmentin 875-125 mg) Ibuprofen (Advil) 200 - 600 mg PO Q4H PRN Pain #0 07/29/16 History tabs Patient History Social History Tobacco Type: Smokeless Tobacco (Dip or Chew) Do You Dip or Chew Tobacco: Yes; Tobacco Cessation Education Requested by Patient: No Hx Substance Use: No Preferred Language: Maltese Communication Ability: Effective 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 Current Living Situation: Spouse Other Information That Helps Us Care for You: No Feels Safe at Home: Yes Assistive Devices: None Review of Systems Constitutional: no fever and no chills Eyes: no blind spots and no diplopia Ear, Nose, Mouth, Throat: no tinnitus and no hearing loss Respiratory: no cough and no dyspnea Cardiovascular: as per Subjective / HPI and + chest pain Gastrointestinal: no nausea and no vomiting Genitourinary: no dysuria or no urinary incontinence Musculoskeletal: as per Subjective / HPI and + neck pain; no myalgia Integumentary: no rash and no lesions Neurologic: as per Subjective / HPI Psychiatric: no depression and no anxiety Hematologic / Lymphatic: no easy bleeding and no easy bruising Exam (Neuro) Constitutional: well developed and well nourished; no acute distress Eyes: normal visual rajan by confrontation, PERRL, normal accommodation and EOM intact bilaterally; no fundoscopic abnormality, no nystagmus and no papilledema Cardiovascular: Vessels: normal carotid upstroke; no carotid bruit Neurologic: Oriented to:: Person, Place and Time Memory: Short Term Intact and Remote Intact Attention: Span Intact and Concentration Intact Language: Naming Objects and Repeating Phrases Speech Fluency: negative Dysarthria Speech Aphasia: negative Aphasia Fund of Knowledge: Current Events, Past History and Vocabulary Cranial Nerves: Normal II (Visual rajan full to confrontation, visual acuity normal), III, IV, (Pupils equal round reactive to light and accommodation, eye movements normal), V (Facial sensation intact), VII (There is no facial droop or weakness), VIII (Hearing intact), IX, X (Palate elevates to midline), XI (Shoulder shrug intact) and XII (Tongue protrudes to midline) Motor Strength: Normal Lower Extremities and Normal Upper Extremities; negative Pronator Drift Motor Tone: Normal Lower Extremities and Normal Upper Extremities Muscle Bulk/Involuntary Movements: No Involuntary Movements; negative Muscle Atrophy Sensation: Light Touch Intact, Pain/Temperature Intact, Vibration Intact and Proprioception Intact Coordination: Normal; negative Limited Balance, Dysdiadochokinesia, Finger-Nose Abnormal or Heel-Muñoz Abnormal Deep Tendon Reflexes: Rt Triceps: 2+, Lt Triceps: 2+, Rt Biceps: 2+, Lt Biceps: 2+, Rt Brachioradialis: 2+, Lt Brachioradialis: 2+, Rt Patellar: 2+, Lt Patellar: 2+, Rt Ankle: 2+ and Lt Ankle: 2+ Special Tests: negative Babinski Present Gait: Normal Station and Gait Results & Data ([facility]) Vital Signs (Past 12 Hours) Vital Signs Temp Pulse Pulse Resp BP BP Pulse Ox 02/03/22 11:02 36.5 C 71 18 149/94 H 97 02/03/22 08:51 78 18 108/81 98 02/03/22 06:43 69 18 124/66 96 02/03/22 04:38 68 16 150/72 H 94 02/03/22 03:21 89 20 111/76 96 02/03/22 03:21 96 02/03/22 03:10 36.8 C 89 20 111/76 96 O2 Del Method 02/03/22 11:02 Room Air 02/03/22 08:51 Room Air 02/03/22 06:43 Room Air 02/03/22 04:38 Room Air 02/03/22 03:21 Room Air 02/03/22 03:21 Room Air 02/03/22 03:10 Room Air Laboratory Results WBC 8.75, hemoglobin 15.4, hematocrit 44.9, MCV 91.3, platelet count 207, sodium 136, potassium 4.0, BUN 18, creatinine 0.99, glucose 128, calcium 8.7, magnesium 2.1, AST 20, ALT 26, urinalysis negative, SARS-CoV-[address] testing [address] Findings CT of the head including CT angiography of the head and neck are as described in the history of present illness. I independently reviewed the images as well as the radiologist interpretation of these tests. 10 electrocardiogram reveals a normal sinus rhythm, incomplete right bundle branch block, 77 bpm. Coding Level of Care Code 82320 Initial Inpt Care Lvl 3 Diagnoses Chest pain R07.9 Stroke-like symptom R29.90 Neck pain M54.2
[2022-02-03] MEDS: ACETAMINOPHEN 325 MG TAB PO PRN (12:55)
--- NOTE | 2022-02-03 15:23 | Communication Note ---
Date of Service: February 03, 2022 Patient seen and examined at bedside. He is comfortable; not in any distress. He still complains of slight tingling seen in the underarm and posterior aspect of his arm. He denies any other focal weakness. Complains of epigastric pain; no substernal pain. On examination; Alert orient x3 Chestbilateral basal breath sound CVS -S1-S2, no murmur Neuro examno focal deficit appreciated. Cardiology on board; recommend ruling out stroke before doing stress test. Resting echocardiogram ordered. Neurology on board; recommend MRI brain to rule out a stroke. MRI cervical spine to be done if stroke is ruled out. Protonix ordered for possible GERD symptoms. Continue on aspirin. Repeat panel and A1c awaited. NPo from midnight for possible stress test
[2022-02-03] MEDS ORDERED: ALPRAZolam 0.25 MG TABLET PO STA (17:14)
[2022-02-03] MEDS ORDERED: Nursing to Pharmacy Communication SCH (17:15)
[2022-02-03] MEDS: PANTOprazole 40 MG TAB PO SCH (17:17)
[2022-02-03] MEDS ORDERED: GADOBUTROL 65ML VIAL IV ONE (18:52)
--- NOTE | 2022-02-03 19:36 | Magnetic Resonance Report ---
MRI OF THE BRAIN WITHOUT AND WITH IV CONTRAST CLINICAL HISTORY: stroke like symptoms COMPARISON STUDY: Head CT and CTA of the head performed earlier today. TECHNIQUE: Utilizing a 1.5 Tiffanie magnet and dedicated coil, multiplanar, multiecho imaging of the br ain was performed pre and postcontrast administration. IV administration of 13 mL of [address] contra st was uneventful. FINDINGS: There are no foci of restricted diffusion to suggest acute infarct. No acute intracranial h emorrhage, midline shift or mass effect is present. Brain volume is normal. Ventricular system is nor mal. Basal cisterns are patent. There are no extra-axial collections. Flow-voids for the major intrac ranial vessels are present. There is no intracranial mass or pathologic enhancement. There is apparen t small focus of encephalomalacia within the left parietal lobe. This is not acute. Calvarial signal is within normal limits. There is no evidence for sinusitis. There is no mastoid fluid. IMPRESSION: 1. No acute intracranial findings. 2. No intracranial mass or pathologic enhancement. ACT 112: Negative or not required by law. Electronically signed by: Patrick Pruett M.D. 02/03/2022 7:32 PM
[2022-02-04 07:18] LABS: Basophils # (auto) 0.07 K/uL (0-0.2); Basophils % (auto) 0.9 %; Eosinophils # (auto) 0.13 K/uL (0-0.50); Eosinophils % (auto) 1.6 %; Hematocrit (blood only) 43.1 % (40.1-51.0); Hemoglobin 15.2 g/dl (14.0-18.0); Immature Granulocytes # (auto) 0.17 K/uL (0.00-0.02); Immature Granulocytes % (auto) 2.1 %; Lymphocytes # (auto) 1.31 K/uL (1.2-3.4); Mean Corpuscular Hemoglobin 31.8 pg (25.0-34.0); Mean Corpuscular Hgb Conc 35.3 g/dL (32.0-36.0); Mean Corpuscular Volume 90.2 fL (80.0-100.0); Mean Platelet Volume 11.3 fL (9.4-12.4); Monocytes # (auto) 0.58 K/uL (0.24-0.82); Monocytes % (auto) 7.1 %; Neutrophils # (auto) 5.95 K/uL (1.4-6.5); Neutrophils % (auto) 72.3 %; Platelet Count 182 K/uL (130-400); RDW Coefficient of Variation 12.1 % (11.5-14.5); RDW Standard Deviation 40.1 fL (36.4-46.3); Red Blood Count 4.78 M/uL (4.63-6.08); White Blood Count 8.21 K/ul (4.8-10.8)
[2022-02-04 07:42] LABS: Calcium 8.6 mg/dl (8.5-10.1); Chol HDL Ratio 5.1 (0-5); Creatinine Clr Calc Pharmacy 114.6 ml/min; Est GFR (African American) 96.4 ml/min; Est GFR (Non-African American) 83.2 ml/min; Potassium 4.2 mmol/L (3.5-5.1)
[2022-02-04 07:54] LABS: Estimated Average Glucose 140 mg/dl; Hemoglobin A1C 6.5 % (4.5-5.6)
--- NOTE | 2022-02-04 08:45 | Electrocardiogram Report ---
Test Reason : Blood Pressure : / mmHG Vent. Rate : 083 BPM Atrial Rate : 083 BPM P-R Int : 146 ms QRS Dur : 110 ms QT Int : 404 ms P-R-T Axes : 072 049 060 degrees QTc Int : 474 ms Normal sinus rhythm Incomplete right bundle branch block Borderline ECG When compared with ECG of 03-FEB-2022 03:10, No significant change was found Confirmed by Josh Cruz ([id number]) on 02/04/2022 8:45:33 AM Referred By: REFERRED SELF Confirmed By:Billy Cruz
[2022-02-04] MEDS ORDERED: LORazepam 0.5 MG TAB PO SCH (10:00)
[2022-02-04] MEDS: PANTOprazole 40 MG TAB PO SCH (10:06)
[2022-02-04] MEDS: ASPIRIN 81 MG ECTAB PO SCH (10:06)
[2022-02-04] MEDS: ACETAMINOPHEN 325 MG TAB PO PRN (10:08)
--- NOTE | 2022-02-04 10:10 | Cardiology Progress Note ---
Date of Service February 04, 2022 Assessment & Plan (1) Chest pain: (2) Stroke-like symptom: Plan 56 yo male without significant medical history (does not follow with a PCP) presents with chest pain and left upper extremity weakness starting at 11pm last night currently without symptoms CVA was ruled out. Exercise stress echocardiogram was unremarkable without inducible ischemia. No cardiac source for chest discomfort found. Okay to discharge to home from a cardiac standpoint. LDL is relatively well controlled, no indication for statin at this time. Hemoglobin A1c slightly elevated at 6.5. Recommend obtaining PCP and follow-up with them as an outpatient. Patient should follow-up with cardiology as an outpatient in 1 month. Admission and Anticipated Discharge Date Admission Date: February 03, 2022 Results & Data ([facility]) Vital Signs (Past 12 Hours) Vital Signs Temp Pulse Pulse Resp BP Pulse Ox O2 Del Method 02/04/22 06:45 36.5 C 76 18 119/71 96 Room Air 02/04/22 03:05 36.7 C 77 18 140/87 96 02/03/22 23:02 36.6 C 81 18 106/64 96 Room Air 02/03/22 22:47 65
[2022-02-04] MEDS ORDERED: GADOBUTROL 65ML VIAL IV ONE (13:08)
--- NOTE | 2022-02-04 14:31 | Magnetic Resonance Report ---
MRI OF THE CERVICAL SPINE COMBO CLINICAL HISTORY: Strokelike symptoms. Left arm pain. Upper extremity tingling. Toe numbness. COMPARISON STUDY: MRI of the cervical spine dated 10/19/2016. TECHNIQUE: MRI of the cervical spine was performed utilizing various T1- and T2-weighted sequences in the axial and sagittal planes. Contrast-enhanced sequences are acquired following the IV administrat ion of 13 cc of Gadavist. FINDINGS: Cervical spine: Vertebral body height and alignment are maintained throughout the cervical spine. Nor mal marrow signal intensity is maintained throughout the visualized bony structures. There is straigh tening of the cervical lordosis. Tiny anterior osteophytes are seen throughout. The spinous processes appear intact. The atlantodental articulation is maintained. A hemangioma is noted in the body of T2 . No destructive bony lesion is seen. Intervertebral discs: Disc desiccation and mild loss of height is seen throughout the cervical spine. Spinal cord: The cervical cord is normal in morphology and signal intensity. No abnormal postcontrast enhancement is identified. C2-C3: Unremarkable. C3-C4: Uncovertebral and facet arthropathy contribute to mild left-sided neural foraminal stenosis. T he central canal is clear. C4-C5: Uncovertebral and facet arthropathy contribute to minimal left-sided neural foraminal narrowin g. The central canal is clear. C5-C6: A posterior disc osteophyte complex abuts the ventral cord. There is left lateral disc bulge. In conjunction with facet arthropathy there is moderate left neural foraminal stenosis. The right cullen ral foramen is patent. C6-C7: There is a posterior disc osteophyte complex eccentric to the left which minimally effaces the ventral cord. The neural foramina are patent. C7-T1: There is minimal left lateral disc bulge. This contributes to mild left-sided neural foraminal stenosis. The central canal is clear. Soft tissues: The prevertebral and paraspinous soft tissues are normal as visualized. Brain parenchyma: The imaged brain parenchyma at the skull base is within normal limits. IMPRESSION: 1. Mild spondylotic change as above. 2. The cervical cord is normal in morphology and signal intensity. 3. No destructive bony process is identified. Dictated: 02/04/2022 2:05 PM Transcribed: 02/04/2022 2:20 PM Eleni [id number] [facility] Electronically signed by: Hardeep Garcia M.D. 02/04/2022 2:29 PM
--- NOTE | 2022-02-04 15:50 | Hospitalist Progress Note ---
Date of Service February 04, 2022 Assessment & Plan (1) Chest pain: Plan: Patient is a 56 yr male who presents with chest pain and also stroke-like symptoms. Stroke Like symptoms Likely Peripheral Neuropathy/Cervical Disc disease --MRI Brain:No acute intracranial findings. No intracranial mass or pathologic enhancement. --Cervical MRI:Mild spondylotic change as above. The cervical cord is normal in morphology and signal intensity. No destructive bony process is identified. --Head CTA:There is no evidence of hemorrhage, mass effect, or acute territorial ischemia noting angiographic phase technique. Unremarkable CT angiogram of the brain. --Neck CTA:No significant stenosis, occlusion, or dissection identified within the carotid or vertebral arteries. 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 --ECHO: Normal LV chamber size, mild concentric LVH. EF 55 to 60%. Grade 2 diastolic dysfunction. No segmental left ventricular wall motion abnormality. Poorly visualized valvular structures without significant stenosis or regurgitation by Doppler. 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 DVT Px: SCDs Code Status Full Code Disposition Home Admission and Anticipated Discharge Date Admission Date: February 03, 2022 Subjective Patient is seen and examined at bedside Chest pain resolved Had cardiac stress test earlier today States having minimal tingling sensation in his fingers bilaterally Offers no other complaints Denies any dyspnea, dizziness, nausea, abdominal pain Review of Systems Review of Systems: All systems reviewed & are unremarkable except as noted in Subjective Physical Exam Physical Exam: Physical Exam: Vitals signs as noted above General Appearance:Obese, no apparent distress Head: normocephalic, Atraumatic Eyes: normal inspection, EOMI Neck: supple, Trachea midline Respiratory/Chest: Normal breath sounds, CTA, No accessory muscle use Cardiovascular: S1, S2, No murmur Abdomen/GI:Soft, Non tender, Bowel sounds present Extremities/Musculoskeletal:normal inspection, no edema Neurologic/Psych:AAOX3, grossly no focal neurological deficits Skin: normal color, warm Results & Data Results & Data ([facility]) Vital Signs (Past 12 Hours) Vital Signs Temp Pulse Resp BP Pulse Ox O2 Del Method 02/04/22 11:13 36.6 C 68 19 112/75 94 Room Air 02/04/22 06:45 36.5 C 76 18 119/71 96 Room Air Laboratory Results Short CBC 02/04/22 Range/Units 06:45 WBC 8.21 (4.8-10.8) K/ul Hgb 15.2 (14.0-18.0) g/dl Hct 43.1 (40.1-51.0) % Plt Count 182 (130-400) K/uL BMP 02/04/22 06:45 Sodium 135 L Potassium 4.2 Chloride 103 Carbon Dioxide 27 BUN 15 Creatinine 1.00 Glucose 149 H Calcium 8.6 (1) Chest pain Chest pain type: precordial pain Qualified Code(s): R07.2 - Precordial pain
--- NOTE | 2022-02-04 16:17 | Discharge Summary ---
Date of Service February 04, 2022 Admission HPI Per Admitting Provider CHIEF COMPLAINT: Chest pain and numbness in the left upper extremity. HISTORY OF PRESENT ILLNESS: A 56-year-old male with no significant past medical history, does not go to the doctor often, not on any medications, presents with chest pain. The patient says last night at 11 p.m., before going to work, he had some chest discomfort and also numbness and pain in his left underarm and feels numbness in the last two fingers and also headache and neck pain and also some discomfort in his left thigh region and also some numbness in the left foot. After coming from work, it was not getting better, so he was brought to the hospital. He was given aspirin and nitroglycerin sublingually, currently resting comfortably, talking fine. No facial droop seen, no slurred speech. The patient states couple of days ago, he had problem where he felt like he was not walking straight and today also, before going to work, he felt like falling forward. 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 No smoking, but chews tobacco daily. Alcohol o ccasionally. No drug use. Currently, headache is okay. No blurred visions, no earache, no runny nose, no sore throat, no cough, no difficulty swallowing. Appetite is okay. During the episode, he felt slightly short of breath and slightly nauseous. He also has chronic abdominal pain. No diarrhea or constipation. Normal bladder movements. Currently, resting comfortably and hemodynamically stable. Admission Exam Per Admitting Provider PHYSICAL EXAMINATION: GENERAL: The patient is morbidly obese, not in acute distress. VITAL SIGNS: Temperature 36.8, pulse 68, respiratory rate 16, blood pressure 150/72, oxygen 94% on room air. HEENT: Pupils equal, round and reactive to light. Oral mucosa moist. NECK: No JVD or neck masses. CARDIOVASCULAR: S1 and S2 heard. Regular rate and rhythm. No murmur, no gallop. RESPIRATORY SYSTEM: Normal AP diameter. No accessory muscle use. No wheezing, no crackles. ABDOMEN: Soft, bowel sounds are present. Mild abdominal discomfort, no guarding, no rigidity, no distention. CENTRAL NERVOUS SYSTEM: Alert, awake, and oriented x3. Speech is clear. No facial droop seen. Insight is good. Obeys commands. Power 5/5 in all extremities. Coordination of movements normal. No pronator drift. Sensation is intact. Position sense intact. EXTREMITIES: No edema, no erythema. Principal Diagnosis Peripheral Neuropathy/Cervical Disc disease Left vertebral artery aneurysm Chest Pain Diabetes Mellitus -Type II Discharge Data Allergies Allergy/AdvReac Type Severity Reaction Status Date / Time No Known Allergies AdvReac Unknown UNKNOWN Unverified 07/29/16 17:51 Consultations 02/03/22 05:23 ED Decision to Admit Stat 02/03/22 09:09 Consult Cardiology Routine Consult Neurology Routine Procedures Performed Laboratory Results WBC 8.21 K/ul (4.8-10.8) 02/04/22 06:45 RBC 4.78 M/uL (4.63-6.08) 02/04/22 06:45 Hgb 15.2 g/dl (14.0-18.0) 02/04/22 06:45 Hct 43.1 % (40.1-51.0) 02/04/22 06:45 MCV 90.2 fL (80.0-100.0) 02/04/22 06:45 MCH 31.8 pg (25.0-34.0) 02/04/22 06:45 MCHC 35.3 g/dL (32.0-36.0) 02/04/22 06:45 RDW Std Deviation 40.1 fL (36.4-46.3) 02/04/22 06:45 RDW Coeff of Faye 12.1 % (11.5-14.5) 02/04/22 06:45 Plt Count 182 K/uL (130-400) 02/04/22 06:45 MPV 11.3 fL (9.4-12.4) 02/04/22 06:45 Immature Gran % (Auto) 2.1 % 02/04/22 06:45 Neut % (Auto) 72.3 % 02/04/22 06:45 Lymph % (Auto) 16.0 % 02/04/22 06:45 Knox % (Auto) 7.1 % 02/04/22 06:45 Eos % (Auto) 1.6 % 02/04/22 06:45 Baso % (Auto) 0.9 % 02/04/22 06:45 Neut # (Auto) 5.95 K/uL (1.4-6.5) 02/04/22 06:45 Lymph # (Auto) 1.31 K/uL (1.2-3.4) 02/04/22 06:45 Knox # (Auto) 0.58 K/uL (0.24-0.82) 02/04/22 06:45 Eos # (Auto) 0.13 K/uL (0-0.50) 02/04/22 06:45 Baso # (Auto) 0.07 K/uL (0-0.2) 02/04/22 06:45 Immature Gran # (Auto) 0.17 K/uL (0.00-0.02) H 02/04/22 06:45 PT 10.7 Seconds (9.0-12.0) 02/03/22 03:15 INR 1.0 (0.9-1.1) 02/03/22 03:15 APTT 29.6 Seconds (21.0-31.0) 02/03/22 03:15 PTT Ratio 1.1 02/03/22 03:15 D-Dimer 190 ug/L FEU (0-500) 02/03/22 03:15 Sodium 135 mmol/L (136-145) L 02/04/22 06:45 Potassium 4.2 mmol/L (3.5-5.1) 02/04/22 06:45 Chloride 103 mmol/L (98-107) 02/04/22 06:45 Carbon Dioxide 27 mmol/L (21-32) 02/04/22 06:45 Anion Gap 5 (3-11) 02/04/22 06:45 BUN 15 mg/dl (6-23) 02/04/22 06:45 Creatinine 1.00 mg/dl (0.6-1.4) 02/04/22 06:45 Est Cr Clr Drug Dosing 114.6 ml/min 02/04/22 06:45 Est GFR ( Amer) 96.4 ml/min 02/04/22 06:45 Est GFR (Non-Af Amer) 83.2 ml/min 02/04/22 06:45 BUN/Creatinine Ratio 15.0 (10-20) 02/04/22 06:45 Glucose 149 mg/dl (70-99(Fasting)) H 02/04/22 06:45 POC Glucose 131 mg/dl (70-99) H 02/04/22 11:15 Estimat Average Glucose 140 mg/dl 02/04/22 06:45 Hemoglobin A1c 6.5 % (4.5-5.6) H 02/04/22 06:45 Calcium 8.6 mg/dl (8.5-10.1) 02/04/22 06:45 Magnesium 2.1 mg/dl (1.7-2.4) 02/03/22 03:15 Total Bilirubin 0.7 mg/dl (0.2-1.0) 02/03/22 03:15 Direct Bilirubin 0.1 mg/dl (0-0.2) 02/03/22 03:15 AST 20 U/L (13-39) 02/03/22 03:15 ALT 26 U/L (7-52) 02/03/22 03:15 Alkaline Phosphatase 82 U/L (34-104) 02/03/22 03:15 Troponin I High Sens 3.1 pg/ml (0-20) 02/03/22 21:09 Total Protein 6.6 gm/dl (6.0-8.3) 02/03/22 03:15 Albumin 4.2 gm/dl (3.4-5.0) 02/03/22 03:15 Triglycerides 281 mg/dl (0-150) H 02/04/22 06:45 Cholesterol 162 mg/dl (0-200) 02/04/22 06:45 LDL Cholesterol, Calc 74 mg/dl 02/04/22 06:45 VLDL Cholesterol, Calc 56 mg/dl (0-30) H 02/04/22 06:45 HDL Cholesterol 32 mg/dl 02/04/22 06:45 Cholesterol/HDL Ratio 5.1 (0-5) H 02/04/22 06:45 Lipase 48 U/L (11-82) 02/03/22 03:15 Urine Color Yellow 02/03/22 Unknown Urine Appearance Clear (Clear) 02/03/22 Unknown Urine pH 5.5 (4.5-7.5) 02/03/22 Unknown Ur Specific [place] 1.020 (1.000-1.030) 02/03/22 Unknown Urine Protein Negative (Negative) 02/03/22 Unknown Urine Glucose (UA) Negative (Negative) 02/03/22 Unknown Urine Ketones Negative (Negative) 02/03/22 Unknown Urine Blood Negative (Negative) 02/03/22 Unknown Urine Nitrite Negative (Negative) 02/03/22 Unknown Urine Bilirubin Negative (Negative) 02/03/22 Unknown Urine Urobilinogen Negative (Negative) 02/03/22 Unknown Ur Leukocyte Esterase Negative (Negative) 02/03/22 Unknown SARS-CoV-2, RNA, NAAT NEGATIVE (NEGATIVE) 02/03/22 04:03 Impressions Chest X-Ray 02/03/22 03:22 XR chest 1V portable HISTORY: Midsternal chest pain. COMPARISON: None. FINDINGS: There are low lung volumes. The lungs appear clear. The cardiac silhouette is borderline enlarged. No pleural effusions. No pneumothorax. No evidence for pulmonary edema. No focal lung consolidations to suggest pneumonia. IMPRESSION: Borderline cardiomegaly. Otherwise, no acute process within the chest. ACT 112: Negative or not required by law. Electronically signed by: Jean Carlos Morgan M.D. 02/03/2022 9:[address] 02/03/22 04:[address] DOSE: 691.05 mGy.cm HISTORY: stroke like symptoms TECHNIQUE: Multiaxial CT images of the head were performed without the use of intravenous contrast. Automated exposure control was utilized for this study. A dose lowering technique was utilized adhering to the principles of ALARA. Comparison: Head CT 07/10/2014. Findings: The paranasal sinuses and mastoid air cells are clear. The calvarium and skull base are intact. The ventricles and sulci are within normal limits. There is no mass, hematoma, midline shift, or acute infarct. Stable small focus of encephalomalacia within the left high convexity likely due to an old injury/old infarct. Impression: No significant change compared to the prior study. No acute intracranial abnormality. ACT 112: Negative or not required by law. Electronically signed by: Jean Carlos Morgan M.D. 02/03/2022 7:17 AM Head CTA 02/03/22 06:21 CT ANGIOGRAM OF THE BRAIN CLINICAL HISTORY: Strokelike symptoms. COMPARISON STUDY: CT angiogram of the brain dated 07/10/2014. Unenhanced CT of the brain performed concurrently on 02/03/2022 TECHNIQUE: Following the IV administration of 160 cc of Optiray 300, CT angiogram of the brain was performed from the skull base to the vertex. Images are reviewed in the axial, sagittal, and coronal planes. 3-D MIPS images are created and assessed. IV contrast was administered without complication. A dose lowering technique was utilized adhering to the principles of ALARA. CT DOSE: 1390.64 mGy.cm FINDINGS: Brain parenchyma: A small focus of encephalomalacia in the high left posterior parietal cortex is consistent with a remote insult. There is no evidence of hemorrhage, mass effect, or acute territorial ischemia noting angiographic phase technique. There is no evidence of enhancing mass lesion on the angiogram phase images. No extra-axial fluid collection is seen. Perea-white matter differentiation is preserved. Ventricles, sulci, and cisterns: Normal in configuration. CT angiogram of the brain: There is a left posterior communicating artery. The internal carotid arteries are widely patent, as are the anterior and middle cerebral arteries. The vertebrobasilar system and posterior cerebral arteries are widely patent. The left vertebral artery is dominant. There is no aneurysm, high-grade stenosis, or focal vessel cutoff identified throughout the intrac ranial circulation. Dural sinuses: Clear as visualized. Orbits: The bony orbits are intact. The orbital contents are normal as visualized noting bilateral ocular lens implants. Sinuses and mastoids: The paranasal sinuses are clear. The mastoid air cells are well pneumatized. Calvarium: Unremarkable. IMPRESSION: 1. There is no evidence of hemorrhage, mass effect, or acute territorial ischemia noting angiographic phase technique. 2. Unremarkable CT angiogram of the brain. ACT 112: Negative or not required by law. Electronically signed by: Hardeep Garcia M.D. 02/03/2022 7:25 AM Neck CTA 02/03/22 06:21 NECK CTA HISTORY: stroke like symptoms TECHNIQUE: Multiaxial CT images of the neck were performed following the intravenous administration of contrast to evaluate the major cervical vessels. Maximum intensity projection images were also obtained. All measurements were calculated based on NASCET criteria. A dose lowering technique was utilized adhering to the principles of ALARA. COMPARISON STUDY: None. FINDINGS: The aortic arch and proximal great vessels are widely patent. There is no significant stenosis, occlusion, or dissection identified within the bilateral common carotid, internal carotid, or vertebral arteries. Focal fusiform aneurysmal dilatation of the distal intracranial left vertebral artery on axial image 339. This measures 5.8 mm in diameter. IMPRESSION: 1. No significant stenosis, occlusion, or dissection identified within the carotid or vertebral arteries. 2. 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 ACT 112: Negative or not required by law. Electronically signed by: Jean Carlos Morgan M.D. 02/03/2022 7:37 AM Brain MRI 02/03/22 09:15 MRI OF THE BRAIN WITHOUT AND WITH IV CONTRAST CLINICAL HISTORY: stroke like symptoms COMPARISON STUDY: Head CT and CTA of the head performed earlier today. TECHNIQUE: Utilizing a 1.5 Tiffanie magnet and dedicated coil, multiplanar, multiecho imaging of the brain was performed pre and postcontrast administration. IV administration of 13 mL of [address] contrast was uneventful. FINDINGS: There are no foci of restricted diffusion to suggest acute infarct. No acute intracranial hemorrhage, midline shift or mass effect is present. Brain volume is normal. Ventricular system is normal. Basal cisterns are patent. There are no extra-axial collections. Flow-voids for the major intracranial vessels are present. There is no intracranial mass or pathologic enhancement. There is apparent small focus of encephalomalacia within the left parietal lobe. This is not acute. Calvarial signal is within normal limits. There is no evidence for sinusitis. There is no mastoid fluid. IMPRESSION: 1. No acute intracranial findings. 2. No intracranial mass or pathologic enhancement. ACT 112: Negative or not required by law. Electronically signed by: Patrick Pruett M.D. 02/03/2022 7:32 PM Cervical Spine MRI 02/04/22 08:31 MRI OF THE CERVICAL SPINE COMBO CLINICAL HISTORY: Strokelike symptoms. Left arm pain. Upper extremity tingling. Toe numbness. COMPARISON STUDY: MRI of the cervical spine dated 10/19/2016. TECHNIQUE: MRI of the cervical spine was performed utilizing various T1- and T2- weighted sequences in the axial and sagittal planes. Contrast-enhanced sequences are acquired following the IV administration of 13 cc of Gadavist. FINDINGS: Cervical spine: Vertebral body height and alignment are maintained throughout the cervical spine. Normal marrow signal intensity is maintained throughout the visualized bony structures. There is straightening of the cervical lordosis. Tiny anterior osteophytes are seen throughout. The spinous processes appear intact. The atlantodental articulation is maintained. A hemangioma is noted in the body of T2. No destructive bony lesion is seen. Intervertebral discs: Disc desiccation and mild loss of height is seen throughout the cervical spine. Spinal cord: The cervical cord is normal in morphology and signal intensity. No abnormal postcontrast enhancement is identified. C2-C3: Unremarkable. C3-C4: Uncovertebral and facet arthropathy contribute to mild left-sided neural foraminal stenosis. The central canal is clear. C4-C5: Uncovertebral and facet arthropathy contribute to minimal left-sided neural foraminal narrowing. The central canal is clear. C5-C6: A posterior disc osteophyte complex abuts the ventral cord. There is left lateral disc bulge. In conjunction with facet arthropathy there is moderate left neural foraminal stenosis. The right neural foramen is patent. C6-C7: There is a posterior disc osteophyte complex eccentric to the left which minimally effaces the ventral cord. The neural foramina are patent. C7-T1: There is minimal left lateral disc bulge. This contributes to mild left- sided neural foraminal stenosis. The central canal is clear. Soft tissues: The prevertebral and paraspinous soft tissues are normal as visualized. Brain parenchyma: The imaged brain parenchyma at the skull base is within normal limits. IMPRESSION: 1. Mild spondylotic change as above. 2. The cervical cord is normal in morphology and signal intensity. 3. No destructive bony process is identified. Dictated: 02/04/2022 2:05 PM Transcribed: 02/04/2022 2:20 PM Eleni [id number] [facility] Electronically signed by: Hardeep Garcia M.D. 02/04/2022 2:29 PM Ordered Studies 02/03/22 04:19 CT head/brain wo con Urgent 02/03/22 06:21 CTA head w con [CT angio head w con] Stat 02/03/22 06:21 CT angio neck with con Stat 02/03/22 09:15 MR brain wo/w con Routine 02/04/22 08:31 MRI Cervical [MR cervical spine wo/w con] Routine Diabetes Follow up Diabetes Follow-up Needed for Newly Diagnosed Diabetes Hospital Course (1) Chest pain: Patient is a 56 yr male who presents with chest pain and also stroke-like symptoms. Stroke Like symptoms Likely Peripheral Neuropathy/Cervical Disc disease --MRI Brain:No acute intracranial findings. No intracranial mass or pathologic enhancement. --Cervical MRI:Mild spondylotic change as above. The cervical cord is normal in morphology and signal intensity. No destructive bony process is identified. --Head CTA:There is no evidence of hemorrhage, mass effect, or acute territorial ischemia noting angiographic phase technique. Unremarkable CT angiogram of the brain. --Neck CTA:No significant stenosis, occlusion, or dissection identified within the carotid or vertebral arteries. 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 --ECHO: Normal LV chamber size, mild concentric LVH. EF 55 to 60%. Grade 2 diastolic dysfunction. No segmental left ventricular wall motion abnormality. Poorly visualized valvular structures without significant stenosis or regurgitation by Doppler. --- Added aspirin 81 mg daily Appreciate neurology input May need EMG as outpatient May need orthopedics follow-up as outpatient as well Left vertebral artery aneurysm Incidental finding on CT Advised to follow-up with vascular surgery as outpatient Chest Pain Possible GERD Less likely ACS Negative troponin Echo as above EKG signs of acute ischemia Started on PPI Stress echo unremarkable without inducible ischemia Needs follow-up with cardiology in 1 month as outpatient Diabetes Mellitus -Type II New diagnosis HbA1c 6.1 certified breastfeeding educator consulted Patient preferred to be started on metformin. 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 Px: SCDs Code Status Full Code Disposition Home Total Time Total Time Spent Total Time Spent (In Minutes): 45 minutes Discharge Plan Discharge Items Patient Disposition: Home - Self-Care Reason For Visit: CHEST PAIN AND STROKE LIKE SYMPTOMS Discharge Diagnosis: Peripheral Neuropathy/Cervical Disc disease Left vertebral artery aneurysm Chest Pain Diabetes Mellitus -Type II Activity: Per Instructions section Exercise/Sports: Gradually increase as tolerated Non-emergency contact: Primary Care Provider, Surgeon, Business Operations Consultant and Neurologist Call non-emergency contact if: you have any medication questions, your symptoms worsen, your pain is concerning for you and you have a fever Follow-up/Referrals: Dickson Burr PA-C [Primary Care Provider] - Diet: Carb Consistent or DM2 and Heart Healthy Addtl Attending Provider Instructions: Follow-up with your primary care physician Dickson Burr PA-C in 1 week Follow-up with your correspondence dictator Dr. Goldsmith in 1 month as advised Follow-up with your neurologist Dr. Li for possible EMG as outpatient --Consider following with your vascular surgeon for further evaluation of left vertebral artery aneurysm as advised --Consider following up with your orthopedic spine surgeon for further evaluation of cervical disc disease. --Quit chewing tobacco as advised. -- Quit taking ibuprofen while on aspirin as your risk for bleeding increases with the combination. Seek immediate medical attention if your symptoms reoccur or worsen Please take all medications as instructed on discharge list below. Please call if you have any questions or problems. You can reach a [facility] hospitalist on duty at [facility] 24 hours a day by calling [phone] Risk Factors for Stroke: You can reduce your chances of stroke by working with your medical provider to adopt a healthy lifestyle. Some specific ways to lower your chance of stroke are: * If you are a smoker, now is the time to stop smoking cigarettes * If you are diabetic, improve the control of your blood sugars * Avoid excessive amounts of alcohol * Control high blood pressure * Lose weight if you are overweight * Be sure to lead an active lifestyle * Eat a healthy diet low in salt, cholesterol and fat You should know about other risk factors for stroke that you are unable to control. These include: * Age 55 years or older * Male gender * Certain racial groups: , or / * Family History of Stroke, Mini stroke or Heart Attack * Sickle Cell Disease Follow Up: It is important for you to keep your follow up appointments with your medical provider. Who to Call and When: Medical Emergencies: Call 911 immediately if you experience any of the following warning signs and symptoms of Stroke: * Sudden numbness or weakness of the face, arm or leg, especially on one side of the body * Sudden confusion, trouble speaking or understanding * Sudden trouble seeing in one or both eyes * Sudden trouble walking, dizziness, loss of balance or coordination * Sudden severe headache with no cause Do not delay calling 911 if you experience any warning signs or symptoms of a stroke. Delay in seeking medical attention may affect what treatments can be given to you. . Pending Studies at Discharge: No Stand-Alone Forms: My [facility], Smoking Cessation Medications and DC Order Prescriptions: New aspirin 81 mg Tablet,Delayed Release (Dr/Ec) 81 mg PO QAM Qty: 30 0RF pantoprazole 40 mg Tablet,Delayed Release (Dr/Ec) 40 mg PO QAM Qty: 30 0RF metformin 500 mg Tablet Extended Release 24 Hr 500 mg PO PM Qty: 30 0RF Continued Amoxicillin & Pot Clavulanate (Augmentin 875-125 mg) 1 TAB tablet 1 tab PO BID Qty: 14 Label Comments: STARTED 07/24/16 FOR 10 DAYS Discontinued Ibuprofen (Advil) 200 MG tablet 200 - 600 mg PO Q4H PRN (Reason: Pain) Qty: 0 Discharge Orders: Discharge Order (Routine); Ordered 02/04/22 Ordered By: Toi Campbell/Other Patient Handouts: Type 2 Diabetes Admission Data Admit Date/Time: 02/03/22 06:09 Attending Provider: Toi Soto Admit Provider: Lamine Carmona Primary Care Provider: Dickson Burr Other Providers: Lamine Carmona ; Jonathan Goldsmith ; Dalton Loza ; Get Kendall ; Juno Ramon ; Pedro Perez ; Al Adams ; Morena Mckeon ; Lisa Max ; Anita Blankenship ; Jaziel Kwan ; Carlos Li ; Stu Dan ; Marlene Leon ; Lisa Borden ; Luther Chau ; Lisa Shankar ; Sanford Viveros ; Wanda Geller ; Jabier Reina ; Brooklyn Galan ; Nusrat De Los Santos
[2022-02-04] MEDS ORDERED: metFORMIN HCL ER 500 MG TABCR PO SCH (21:00)
== END 2022-02-04 17:57 | disposition home or self-care (01) | DRG 74 ==
LOC: ED 03:05 → EDINP 06:09 → SUATTDRO 06:09 → 2S 09:51
DX: F17.220 Nicotine dependence, chewing tobacco, uncomplicated; E66.01 Morbid (severe) obesity due to excess calories; Z68.39 Body mass index [BMI] 39.0-39.9, adult; M54.10 Radiculopathy, site unspecified; K21.9 Gastro-esophageal reflux disease without esophagitis; G93.89 Other specified disorders of brain; M50.90 Cervical disc disorder, unspecified, unspecified cervical region; R07.9 Chest pain, unspecified; Z90.49 Acquired absence of other specified parts of digestive tract; E11.9 Type 2 diabetes mellitus without complications